=== PATIENT | male | born 1940 | race Caucasian/White ===

== ENCOUNTER 2016-11-02 12:19 | Emergency (ER) | payer OTHER ==
[~2016-11-02] VITALS: Ht 172.7 cm; Wt 115.0 kg
[2016-11-02 12:22] VITALS: BP 231/95; PULSE 76; RESP 20; TEMP 98.7; O2SAT 98
[2016-11-02 12:41] VITALS: BP 225/101; PULSE 79; RESP 18; O2SAT 97
--- NOTE | 2016-11-02 12:48 | PD ---
HPI Chief Complaint: Hypertension Time Seen by Provider: 12:45 Travel History International Travel<30 days: No Contact w/Intl Traveler<30days: No Traveled to known affect area: No History of Present Illness HPI 76-year-old male with a history of hypertension, diabetes, dyslipidemia was sent in by his primary care physician for elevated blood pressure at his visit today in office. His blood pressure reading was 231/95. Patient is currently on lisinopril Hydrocort thiazide which she reports she took this morning. Patient denies headache, visual changes, chest pain, shortness of breath. Dr. Power his PCPs requesting that we give the patient some clonidine monitor his blood pressure and have him follow-up in the office. PFSH Past Medical History Narrative Medical Significant for diabetes, hyperlipidemia, hypertension, anemia, GERD Cardiovascular Problems: Yes Diabetes: Yes (TYPE II) Social History Tobacco Use: No Allergies-Medications (Allergen,Severity, Reaction): Coded Allergies: No Known Allergies (Unverified , 11/02/16) Review of Systems Except as stated in HPI: all other systems reviewed are Neg General / Constitutional: No: Fever Eyes: No: Visual changes HENT: No: Headaches Cardiovascular: No: Chest Pain or Discomfort Respiratory: No: Shortness of Breath Gastrointestinal: No: Abdominal Pain Genitourinary: No: Dysuria Physical Exam Narrative GENERAL: Well-nourished, well-developed patient. SKIN: Focused skin assessment warm/dry. HEAD: Normocephalic. EYES: No scleral icterus. No injection or drainage. NECK: Supple, trachea midline. No JVD or lymphadenopathy. CARDIOVASCULAR: Regular rate and rhythm without murmurs, gallops, or rubs. RESPIRATORY: Breath sounds equal bilaterally. No accessory muscle use. GASTROINTESTINAL: Abdomen soft, non-tender, nondistended. MUSCULOSKELETAL: No cyanosis, or edema. BACK: Nontender without obvious deformity. No CVA tenderness. Data Data Last Documented VS Vital Signs Date Time Temp Pulse Resp B/P Pulse Ox O2 Delivery O2 Flow Rate FiO2 11/02/16 12:41 79 18 225/101 97 Room Air 11/02/16 12:22 98.7 Orders Clonidine (Catapres) (11/02/16 13:00) [facility] Medical Decision Making Medical Screen Exam Complete: Yes Emergency Medical Condition: Yes Differential Diagnosis Elevated blood pressure, uncontrolled hypertension, other Narrative Course 76-year-old male by his primary care physician for elevated blood pressure. Currently his blood pressure in the office today was 231/95. Patient denies headache, visual changes, chest pain, shortness of breath. His PCP is requesting that we give the patient clonidine monitor his blood pressure discharge him home for follow-up. Patient will be given clonidine and blood pressure recheck. 1330: Repeat blood pressure 146/70. Patient remains adjacent manic. Patient be discharged home injected to follow-up with his primary care doctor tomorrow. She agrees to plan. Diagnosis Primary Impression: Hypertension Qualified Code: I10 - Essential hypertension Referrals: Primary Care Physician Additional Instructions: Taking blood pressure medication as prescribed. Monitor your home BP readings as we discussed. Follow-up department care doctor tomorrow. Disposition: DISCHARGE HOME Condition: Stable Marika Renee Nov 02, 2016 12:48
[2016-11-02] MEDS ORDERED: cloNIDine HCL 0.2 MG TAB PO ONE (13:00)
[2016-11-02 13:39] VITALS: BP 146/70; PULSE 62; RESP 19; O2SAT 97
--- NOTE | 2016-11-03 13:24 | EKG ---
Date Performed: 11/02/2016 Time Performed: 12:47:10 PTAGE: 76 years EKG: Sinus rhythm NORMAL ECG NO PREVIOUS TRACING DOCTOR: Dani Francois Interpretating Date/Time 11/03/2016 13:22:17
== END 2016-11-02 13:57 | disposition home or self-care (01) ==
LOC: NEPD 12:19
DX: I10 Essential (primary) hypertension (principal); K21.9 Gastro-esophageal reflux disease without esophagitis; E78.5 Hyperlipidemia, unspecified; E11.9 Type 2 diabetes mellitus without complications
CPT/HCPCS: 93005; 99283